=== PATIENT | female | born 1965 | race African-American/Black ===

== ENCOUNTER 2024-06-18 23:38 | Emergency (ER) | payer BC ==
[2024-06-18 23:52] VITALS: BP 133/87; PULSE 76; RESP 18; TEMP 98.2; BMI 28.3
[2024-06-19] MEDS ORDERED: KETOROLAC TROMETHAMINE 30 MG/1 ML VIAL ONE (00:42)
[2024-06-19] MEDS: KETOROLAC TROMETHAMINE 30 MG/1 ML VIAL IM ONE (00:49)
== END 2024-06-19 01:59 | disposition home or self-care (01) ==
LOC: JER 23:38
PROC: 3E0233Z Introduction of Anti-inflammatory into Muscle, Percutaneous Approach (ICD-10-PCS; principal; 2024-06-19)
DX: S83.91XA Sprain of unspecified site of right knee, initial encounter (principal); X50.1XXA Overexertion from prolonged static or awkward postures, initial encounter
CPT/HCPCS: 73564-TC-RT-FY; 99284-25

== ENCOUNTER 2024-06-19 20:34 | Emergency (ER) | payer BC ==
[2024-06-19 20:57] VITALS: BP 129/93; PULSE 93; RESP 20; TEMP 97.8; BMI 28.3
[2024-06-19] MEDS: KETOROLAC TROMETHAMINE 15 MG/ML VIAL IM ONE (21:17)
[2024-06-19] MEDS ORDERED: KETOROLAC TROMETHAMINE 15 MG/ML VIAL ONE (21:17)
== END 2024-06-19 21:29 | disposition home or self-care (01) ==
LOC: JER 20:34 → JERFT 20:34
PROC: 3E0133Z Introduction of Anti-inflammatory into Subcutaneous Tissue, Percutaneous Approach (ICD-10-PCS; principal; 2024-06-19)
DX: M25.461 Effusion, right knee (principal)
CPT/HCPCS: 99284-25

== ENCOUNTER 2024-06-20 21:06 | Emergency (ER) | payer BC ==
[2024-06-20 21:17] VITALS: RESP 16; TEMP 98.2; BMI 28.3
[2024-06-21 06:47] VITALS: BP 132/81; PULSE 76
[2024-06-21 12:24] LABS: HIV INTERPRETATION PRESUMPTIVE POSITIVE (NEGATIVE)
== END 2024-06-21 09:30 | disposition home or self-care (01) ==
LOC: JER 21:06
DX: F10.129 Alcohol abuse with intoxication, unspecified (principal)
CPT/HCPCS: 36415; 86803; 87389; 87522; 99283-25

== ENCOUNTER 2024-06-21 10:08 | Inpatient (IN) | payer BC ==
[2024-06-21] MEDS ORDERED: ACETAMINOPHEN 325 MG TABLET (FP) PO PRN (11:19)
[2024-06-21] MEDS ORDERED: ONDANSETRON *ODT* 4 MG TABLET SL PRN (11:19)
[2024-06-21] MEDS ORDERED: DICYCLOMINE HCL 10 MG CAPSULE PO PRN (11:19)
[2024-06-21] MEDS ORDERED: MAGNESIUM HYDROX 2400MG/30ML ORAL SUSPENSION 30 ML CUP PO PRN (11:19)
[2024-06-21] MEDS ORDERED: hydrOXYzine PAMOATE 25 MG CAPSULE (FP) PO PRN (11:19)
[2024-06-21] MEDS ORDERED: LOPERAMIDE HCL 2 MG CAPSULE PO PRN (11:19)
[2024-06-21] MEDS ORDERED: IBUPROFEN 400 MG TABLET (FP) PO PRN (11:19)
[2024-06-21] MEDS ORDERED: NALOXONE (NYS OPIOID OVERDOSE PROGRAM) 4 MG/0.1 ML SPRAY NS PRN (11:19)
[2024-06-21] MEDS ORDERED: NICOTINE POLACRILEX 2 MG GUM BUC PRN (11:19)
[2024-06-21] MEDS ORDERED: BENZONATATE 200 MG CAPSULE PO PRN (11:19)
[2024-06-21] MEDS ORDERED: POLYETHYLENE GLYCOL (HEALTHYLAX) 3350 17 GM PACKET PO PRN (11:19)
[2024-06-21] MEDS ORDERED: MAG HYDROX/AL HYDROX/SIMETH 30 ML UNIT-DOSE CUP PO PRN (11:19)
[2024-06-21] MEDS ORDERED: guaiFENesin 600 MG TABLET.ER (FP) PO PRN (11:19)
[2024-06-21] MEDS ORDERED: NALOXONE (NARCAN) HCL 4 MG/0.1 ML SPRAY NS PRN (11:19)
[2024-06-21 11:25] VITALS: BMI 27.8
[2024-06-21] MEDS: diazePAM 5 MG TABLET PO SCH (17:43)
[2024-06-21] MEDS: MELATONIN 5 MG TABLETS PO SCH (23:18)
[2024-06-21] MEDS: THIAMINE 100 MG TABLET PO SCH (23:18)
[2024-06-22] MEDS: diazePAM 5 MG TABLET PO PRN (09:47)
[2024-06-22] MEDS: PRENATAL VITAMINS W/ FOLIC ACID TABLET (FP) PO SCH (09:48)
[2024-06-22] MEDS: NICOTINE 14 MG/24 HOURS TOPICAL PATCH TD SCH (09:49)
[2024-06-22 12:38] LABS: HEMATOCRIT 34.3 % (32.4-45.2); HEMOGLOBIN 11.2 GM/dL (10.7-15.3); MCH 30.7 pg (25.7-33.7); MCHC 32.6 g/dl (32.0-36.0); MEAN CELL VOLUME 94.3 fl (80-96); MEAN PLT VOLUME 7.7 fl (7.5-11.1); PLATELET COUNT 167 10^3/uL (134-434); RBC 3.64 M/mm3 (3.60-5.2); RDW 13.7 % (11.6-15.6); WHITE BLOOD COUNT 3.2 K/mm3 (4.0-10.0)
[2024-06-22 13:32] LABS: POTASSIUM 3.5 mmol/L (3.5-5.1)
[2024-06-22 13:38] LABS: BLOOD UREA NITROGEN 11.3 mg/dL (7-18); CALCIUM 8.8 mg/dL (8.5-10.1)
[2024-06-22 13:39] LABS: ALBUMIN 3.2 g/dl (3.4-5.0)
[2024-06-22 13:43] LABS: BILIRUBIN,TOTAL 0.8 mg/dL (0.2-1); CREATININE 0.7 mg/dL (0.55-1.3); TOT PROT 6.6 g/dl (6.4-8.2)
[2024-06-22] MEDS: SERTRALINE HCL 50 MG TABLET (FP) PO SCH (15:34)
[2024-06-22] MEDS: BISMUTH SUBSALICYLATE 262 MG/15 ML BTL PO PRN (17:04)
[2024-06-22] MEDS: IBUPROFEN 600 MG TABLET (FP) PO PRN (17:04)
[2024-06-22] MEDS: QUEtiapine FUMARATE 200 MG TABLET PO SCH (22:07)
[2024-06-23] MEDS: diazePAM 5 MG TABLET PO SCH (05:59)
[2024-06-23] MEDS: BENZOCAINE/MENTHOL (CHLORASEPTIC ) LOZENGE MM PRN (19:48)
[2024-06-23] MEDS: METHOCARBAMOL 500 MG TABLET PO PRN (22:13)
[2024-06-24] MEDS: diazePAM 5 MG TABLET PO SCH (05:59)
[2024-06-25] MEDS: diazePAM 5 MG TABLET PO ONE (05:42)
[2024-06-28 06:46] VITALS: RESP 16
[2024-06-28 13:22] VITALS: BP 136/95; PULSE 68; TEMP 98.2
== END 2024-06-28 13:58 | disposition other institution (70) | DRG 773 ==
LOC: YASAS 10:08 → Y6N 11:42
PROVIDERS: ADMIT Allergy & Immunology; ATTEND Surgery
PROC: HZ2ZZZZ Detoxification Services for Substance Abuse Treatment (ICD-10-PCS; principal; 2024-06-21)
DX: F10.230 Alcohol dependence with withdrawal, uncomplicated (principal); F11.20 Opioid dependence, uncomplicated; F14.20 Cocaine dependence, uncomplicated; F12.20 Cannabis dependence, uncomplicated; F17.210 Nicotine dependence, cigarettes, uncomplicated; F32.9 Major depressive disorder, single episode, unspecified; F19.282 Other psychoactive substance dependence with psychoactive substance-induced sleep disorder; F51.01 Primary insomnia; E78.5 Hyperlipidemia, unspecified; M17.0 Bilateral primary osteoarthritis of knee; Z86.19 Personal history of other infectious and parasitic diseases; Z59.02 Unsheltered homelessness
CPT/HCPCS: 36415; 80053; 80305; 80307; 85027; 86593; 86780; 87811; 93005; 93010

== ENCOUNTER 2024-06-28 14:13 | Inpatient (IN) | payer BC ==
[~2024-06-28 14:13] MED LIST: BENZOCAINE/MENTHOL (CHLORASEPTIC ) LOZENGE MM PRN; BENZONATATE 200 MG CAPSULE PO PRN; LOPERAMIDE HCL 2 MG CAPSULE PO PRN; MAG HYDROX/AL HYDROX/SIMETH 30 ML UNIT-DOSE CUP PO PRN; MAGNESIUM HYDROX 2400MG/30ML ORAL SUSPENSION 30 ML CUP PO PRN; POLYETHYLENE GLYCOL (HEALTHYLAX) 3350 17 GM PACKET PO PRN; guaiFENesin 600 MG TABLET.ER (FP) PO PRN
[2024-06-28] MEDS: THIAMINE 100 MG TABLET PO SCH (21:23)
[2024-06-28] MEDS: MELATONIN 5 MG TABLETS PO SCH (21:23)
[2024-06-28] MEDS: IBUPROFEN 600 MG TABLET (FP) PO PRN (21:24)
[2024-06-28] MEDS: QUEtiapine FUMARATE 200 MG TABLET PO SCH (21:24)
[2024-06-29] MEDS: SERTRALINE HCL 50 MG TABLET (FP) PO SCH (10:16)
[2024-06-29] MEDS: PRENATAL VITAMINS W/ FOLIC ACID TABLET (FP) PO SCH (10:16)
[2024-06-29] MEDS: NICOTINE 14 MG/24 HOURS TOPICAL PATCH TD SCH (10:17)
[2024-06-30] MEDS ORDERED: QUEtiapine FUMARATE 200 MG TABLET PO SCH (10:01)
[2024-06-30] MEDS ORDERED: SERTRALINE HCL 50 MG TABLET (FP) PO SCH (10:01)
[2024-06-30] MEDS: BICTEGRAV/EMTRICIT/TENOFOV (BIKTARVY) 50-200-25 MG TABLET PO SCH (10:14)
[2024-06-30] MEDS: SERTRALINE HCL 50 MG TABLET (FP) PO SCH (10:38)
[2024-06-30] MEDS: QUEtiapine FUMARATE 200 MG TABLET PO SCH (10:38)
[2024-06-30] MEDS: NICOTINE POLACRILEX 2 MG GUM BUC PRN (18:59)
[2024-07-01] MEDS: ACETAMINOPHEN 325 MG TABLET (FP) PO PRN (21:28)
[2024-07-01] MEDS: hydrOXYzine PAMOATE 25 MG CAPSULE (FP) PO PRN (21:28)
[2024-07-02] MEDS: BICTEGRAV/EMTRICIT/TENOFOV (BIKTARVY) 50-200-25 MG TABLET PO SCH (06:06)
[2024-07-04 06:51] VITALS: RESP 18
[2024-07-04] MEDS: IBUPROFEN 400 MG TABLET (FP) PO PRN (21:24)
[2024-07-12 06:20] VITALS: TEMP 98
[2024-07-12 08:59] VITALS: BP 133/95; PULSE 80
== END 2024-07-12 12:20 | disposition home or self-care (01) | DRG 772 ==
LOC: YASAS 14:13 → Y3NR 14:14 → Y5N 06-29 14:33
PROVIDERS: ADMIT Psychiatry & Neurology Pain Medicine; ATTEND Psychiatry & Neurology Pain Medicine
PROC: HZ42ZZZ Group Counseling for Substance Abuse Treatment, Cognitive-Behavioral (ICD-10-PCS; principal; 2024-06-28)
DX: F11.20 Opioid dependence, uncomplicated (principal); F10.20 Alcohol dependence, uncomplicated; F14.20 Cocaine dependence, uncomplicated; F17.210 Nicotine dependence, cigarettes, uncomplicated; F32.9 Major depressive disorder, single episode, unspecified; F51.05 Insomnia due to other mental disorder; Z21 Asymptomatic human immunodeficiency virus [HIV] infection status; E78.5 Hyperlipidemia, unspecified; M17.0 Bilateral primary osteoarthritis of knee; Z79.899 Other long term (current) drug therapy; Z86.19 Personal history of other infectious and parasitic diseases; Z59.02 Unsheltered homelessness
CPT/HCPCS: 80305